=== PATIENT | female | born 1965 | race Caucasian/White ===

== ENCOUNTER 2016-09-03 08:32 | Day surgery (SDC) | payer BC, OTHER ==
[2016-09-02 15:22] LABS: Basophils # (auto) 0 uL; Basophils % (auto) 0.4 % (0.0-2.0); Eosinophils # (auto) 0.1 uL; Eosinophils % (auto) 2.2 % (0.0-7.0); Hemoglobin 13.1 g/dL (12.2-16.2); Lymphocytes % (auto) 29.6 % (10.0-50.0); Mean Corpuscular Hemoglobin 29.8 pg (28.0-32.0); Mean Corpuscular Hgb Conc. 32.8 g/dL (32.0-36.0); Mean Corpuscular Volume 90.9 fL (80.0-100.0); Mean Platelet Volume 9.1 fL (7.4-10.4); Monocytes # (auto) 0.7 uL; Monocytes % (auto) 11.2 % (0.0-12.0); Neutrophils # (auto) 3.8 uL; Neutrophils % (auto) 56.6 % (37.0-80.0); Platelet Count (auto) 292 10^3/uL (140-450); Red Cell Distribution Width 15.2 % (11.6-16.0); White Blood Cell 6.7 10^3/uL (4.4-10.8)
[2016-09-02 15:35] LABS: Urine Bilirubin Negative (Negative); Urine Blood Negative /uL (Negative); Urine Color Colorless (Yellow); Urine Glucose Normal (Normal); Urine Ketone Negative (Negative); Urine Nitrite Negative (Negative); Urine RBC <1 /hpf (0 - 4); Urine Squamous Epithelial Cell FEW /hpf (<5); Urine Urobilinogen Normal (Negative)
[2016-09-02 15:38] LABS: INR 1.11 (0.9-1.15); Partial Thromboplastin Time 28.2 sec (22.64-33.71)
[2016-09-02 15:45] LABS: BUN/Creatinine Ratio 16.1; Potassium 3.9 mmol/L (3.5-5.1)
[2016-09-02 15:57] LABS: Bilirubin, Total 0.4 mg/dL (0.2-1.0); Total Protein 7.4 g/dL (6.4-8.2)
[~2016-09-03] VITALS: Ht 172.7 cm; Wt 68.5 kg
[~2016-09-03 08:32] MED LIST: RANI1TAB6 PO; TRAZ50TA2 PO
[2016-09-03] MEDS ORDERED: ceFAZolin 1GM/50ML D5W 50 ML IV ONE (09:00)
[2016-09-03] MEDS ORDERED: PROPOFOL 10 MG/ML 20 ML IV ONE (09:00)
[2016-09-03] MEDS ORDERED: DEXAMETHASONE SOD PHOS 10MG/1ML VIAL INJ IV ONE (09:00)
[2016-09-03] MEDS ORDERED: BUPIVACAINE 0.75% INJ 10ML MPV SDV IJ ONE ×3 (10:04→11:30)
[2016-09-03] MEDS ORDERED: MIDAZOLAM HCL 1MG/1ML-2 ML VIAL ONE (10:19)
[2016-09-03] MEDS ORDERED: fentaNYL CITRATE 100 MCG/2 ML VL ONE (10:19)
[2016-09-03] MEDS ORDERED: HYDROmorphone HCL 2 MG/ML VL IV PRN (11:45)
[2016-09-03] MEDS ORDERED: hydrALAZINE HCL 20 MG/ML VL IV PRN (11:45)
[2016-09-03] MEDS ORDERED: ONDANSETRON HCL 4 MG/2 ML VIAL IV ONE (11:45)
[2016-09-03] MEDS ORDERED: ePHEDrine SULFATE 50 MG/ML AMP IV PRN (11:45)
[2016-09-03 13:15] VITALS: BP 129/90
== END 2016-09-03 13:17 | disposition home or self-care (01) ==
LOC: SUR 08:32
PROVIDERS: ATTEND Podiatrist Foot & Ankle Surgery
DX: M20.41 Other hammer toe(s) (acquired), right foot (principal); M21.611 Bunion of right foot; M20.5X1 Other deformities of toe(s) (acquired), right foot; Z98.51 Tubal ligation status
CPT/HCPCS: 28285; 28296; 36415; 73660; 76000; 80053; 81001; 84702; 85025; 85610; 85730; 88304; 88311; C1713; C1769; J0690; J1100; J1170; J2250; J2704; J3010; J3490; Q4137